=== PATIENT | female | born 1960 | race Caucasian/White ===

== ENCOUNTER 2017-10-15 10:18 | Inpatient (IN) | payer OTHER, MEDICARE ==
[~2017-10-15] VITALS: Ht 157.5 cm; Wt 53.1 kg
--- NOTE | 2017-10-15 10:26 | NUR ---
KATERINA FROM HOME DT SEVERE BACK PAIN 05/11, NON RADIATING X 3 DAYS WORST TODAY. PATIENT UNABLE TO BEAR WEIGHT DUE TO PAIN, TOOK ADVIL AND TYLENOL BUT NO HELP. PT WITH HX OF MULTIPLE BACK SURGERY. LAST SURGERY WAS 2011. PATIENT IS AFEBRILE. VSS. CONNECTED TO TELE MONITOR. PENDING MD FRANKLIN
[2017-10-15] MEDS ORDERED: ONDANSETRON HCL/PF 4 MG/2 ML VIAL ONE (10:59)
[2017-10-15] MEDS ORDERED: MORPHINE SULFATE INJ 4 MG/ML DISP.SYRIN ONE ×3 (10:59→14:17)
[2017-10-15] MEDS ORDERED: MORPHINE SULFATE INJ 4 MG/ML DISP.SYRIN IV ONE (11:00)
[2017-10-15] MEDS ORDERED: ONDANSETRON HCL/PF 4 MG/2 ML VIAL IV ONE (11:00)
[2017-10-15] MEDS ORDERED: ATOR40TA PO (11:13)
[2017-10-15] MEDS ORDERED: TOPI100T38 PO (11:13)
[2017-10-15] MEDS ORDERED: VENL75CA62 PO (11:13)
[2017-10-15 11:20] LABS: BASOPHILS % (AUTO) 0.4 % (0.0-2.0); EOSINOPHILS # (AUTO) 0.3 /CMM (0.0-0.7); EOSINOPHILS % (AUTO) 4.7 % (0.0-6.0); HEMATOCRIT 47 % (33-45); LYMPHOCYTES # (AUTO) 2.1 /CMM (0.8-4.8); LYMPHOCYTES % (AUTO) 32.1 % (20.0-44.0); MEAN CORPUSCULAR HEMOGLOBIN 32 PG (26.0-33.0); MEAN CORPUSCULAR HGB CONC 34 g/dl (31.0-36.0); MEAN CORPUSCULAR VOLUME 91 fL (82-100); MONOCYTES # (AUTO) 0.6 /CMM (0.1-1.30); MONOCYTES % (AUTO) 9.6 % (2.0-12.0); NEUTROPHILS # (AUTO) 3.4 /CMM (1.8-8.9); NEUTROPHILS % (AUTO) 53.2 % (43.0-81.0); PLATELET COUNT (AUTO) 323 /CMM (150-450); RDW COEFFICIENT OF VARIATION 11.6 (11.5-15.0); WHITE BLOOD COUNT (AUTO) 6.4 K/uL (4.3-11.0)
[2017-10-15 11:30] LABS: CALCIUM, SERUM 9.3 mg/dL (8.5-10.1); CREATININE 0.9 mg/dL (0.6-1.3); POTASSIUM 3.7 mmol/L (3.5-5.1)
--- NOTE | 2017-10-15 11:31 | NUR ---
REPORT GIVEN TO JOHN PAUL REDDING FOR ESTUARDO
[2017-10-15 11:34] LABS: INR 0.95 (0.85-1.15)
[2017-10-15 11:36] LABS: ALBUMIN 3.8 g/dL (3.4-5.0); BILIRUBIN,TOTAL 0.7 mg/dL (0.2-1.0); TOTAL PROTEIN, SERUM 7.4 g/dL (6.4-8.2)
[2017-10-15] MEDS ORDERED: MORPHINE SULFATE INJ 2 MG/ML DISP.SYRIN IV STA (12:19)
[2017-10-15 12:24] LABS: APPEARANCE,URINE Clear (CLEAR); BILIRUBIN,URINE Negative (NEGATIVE); BLOOD, URINE Negative Ery/uL (NEGATIVE); COLOR,URINE Yellow (YELLOW); KETONES,URINE Negative (NEGATIVE); LEUKOCYTE ESTERASE ,URINE Small (NEGATIVE); NITRITE, URINE Negative (NEGATIVE); PROTEIN,URINE Negative (NEGATIVE); UGLUCOSE Negative (NEGATIVE); UROBILINOGEN,URINE 0.2 EU/dL (0.2)
--- NOTE | 2017-10-15 12:25 | NUR ---
MEDICATED PATIENT FOR PAIN ORDERED
[2017-10-15 12:40] LABS: BACTERIA,URINE Rare /HPF (None Seen); RBC,URINE 0-3 /HPF (0-2); SQUAMOUS EPITHELIAL CELL,UR Few /HPF (None Seen)
--- NOTE | 2017-10-15 13:24 | NUR ---
ON-CALL FOR DR. GERALD RIVERA CALLED.
[2017-10-15] MEDS ORDERED: MORPHINE SULFATE INJ 4 MG/ML DISP.SYRIN IV STA (14:15)
[2017-10-15] MEDS ORDERED: diphenhydrAMINE HCL 50 MG/ML VIAL IV STA (14:15)
[2017-10-15] MEDS ORDERED: diphenhydrAMINE HCL 50 MG/ML VIAL ONE (14:16)
--- NOTE | 2017-10-15 14:29 | NUR ---
PATIENT TRANSPORTED TO [facility]. S
--- NOTE | 2017-10-15 15:00 | NUR ---
MS RN NOTES RECEIVED PATIENT IN BED RESTING NO SOB OR ACUTE DISTRESS NOTED. PATIENT ALERT, ORIENTED X4. PERIPHERAL IV INTACT, PATENT. PATIENT ORIENTED TO ROOM, CALL LIGHT WITHIN REACH. BED IN LOW LOCKED POSITION. WILL CONTINUE TO MONITOR.
--- NOTE | 2017-10-15 15:30 | NUR ---
MS RN NOTES PATIENT STATES SHE HAS SEVERE PRURITUS REQUESTS MORE BENADRYL DR. YANNICK ABDULLAHI MADE AWARE AWAITING FOR ORDERS.
--- NOTE | 2017-10-15 15:45 | NUR ---
MS RN NOTES ORDERS RECEIVED FOR BENADRYL 25MG IV ONCE NOTED AND CARRIED OUT.
[2017-10-15 16:00] VITALS: BP 133/77
[2017-10-15] MEDS ORDERED: diphenhydrAMINE HCL 50 MG/ML VIAL IV ONE (16:00)
--- NOTE | 2017-10-15 16:00 | NUR ---
MS RN NOTES DR. YANNICK ABDULLAHI AT BEDSIDE WHILE ADMINISTERING BENADRYL 25MG STATES TO ADMINISTER 50MG FULL DOSE OF BENADRYL. NOTED AND CARRIED OUT.
--- NOTE | 2017-10-15 16:30 | NUR ---
MS RN NOTES PATIENT TRANSFERRED TO MRI.
[2017-10-15] MEDS ORDERED: MAGNESIUM HYDROXIDE 30 ML UDC PO PRN (17:00)
[2017-10-15] MEDS ORDERED: ACETAMINOPHEN 325 MG TABLET PO PRN (17:00)
[2017-10-15] MEDS ORDERED: ONDANSETRON HCL/PF 4 MG/2 ML VIAL IVP PRN (17:00)
[2017-10-15] MEDS ORDERED: DIAZEPAM 5 MG/ML 2 ML DISP.SYRIN IV PRN (17:00)
[2017-10-15] MEDS ORDERED: diphenhydrAMINE HCL 50 MG/ML VIAL IV PRN (17:00)
[2017-10-15] MEDS ORDERED: ZOLPIDEM TARTRATE 5 MG TABLET PO PRN (17:00)
[2017-10-15] MEDS ORDERED: ZOLPIDEM TARTRATE 10 MG TABLET PO PRN (17:30)
[2017-10-15] MEDS: HYDROMORPHONE INJ 2 MG/ML DISP.SYRIN IV PRN (17:45)
[2017-10-15] MEDS: CEPHALEXIN MONOHYDRATE 250 MG CAPSULE PO SCH ×2 (17:45→22:57)
[2017-10-15] MEDS ORDERED: ATORVASTATIN 40 MG TABLET PO SCH (18:00)
[2017-10-15] MEDS ORDERED: DEXAMETHASONE SOD PHOSPHATE 10 MG/ML VIAL IV ONE (18:00)
[2017-10-15] MEDS: TOPIRAMATE 100 MG TABLET PO SCH (18:05)
--- NOTE | 2017-10-15 18:59 | NUR ---
MS RN NOTES PATIENT IN BED RESTING NO SOB OR ACUTE DISTRESS NOTED. ALL DUE MEDICATIONS ADMINISTERED. ALL NEEDS MET. PATIENT COMPLAINING OF ITCHING DR. KAYLEN IVERSON WAITING FOR CALL BACK. BED IN LOW LOCKED POSITION. CALL LIGHT WITHIN REACH. WILL ENDORSE CARE TO PM SHIFT.
--- NOTE | 2017-10-15 19:15 | NUR ---
RN OPENING NOTES PT AWAKE AND RESTING IN BED. NO COMPLAINTS OF PAIN OR SOB. PT COMPLAINING OF "ITCHINESS". INFORMED PT THAT DR ABDULLAHI CHANGED PRN BENADRYL FROM Q6H TO Q4H. WILL ADMINISTER AT 2000. PT HAS A LEFT AC #20, INTACT AND PATENT. PT WILL BE NPO AFTER MIDNIGHT. PT HAS A SCHEDULED EPIDURAL AT 1000 TOMORROW. SAFETY PRECAUTIONS IN PLACE, BED IN LOW, LOCKED POSITION X2 SIDERAILS UP AND CALL LIGHT WITHIN REACH. WILL CONTINUE TO MONITOR.
[2017-10-15 20:00] VITALS: BP 127/87
[2017-10-15] MEDS: diphenhydrAMINE HCL 50 MG/ML VIAL IV PRN (20:03)
--- NOTE | 2017-10-15 20:03 | NUR ---
RN NOTES ADMINISTERED PRN BENADRYL 50MG IV Q4H PER PATIENT REQUEST. WILL CONTINUE TO MONITOR.
--- NOTE | 2017-10-15 20:15 | NUR ---
RN NOTE DR ABDULLAHI ORDERED TORADOL 30MG IV Q6H PRN FOR PAIN. WILL CARRY OUT MD ORDER.
[2017-10-15] MEDS: KETOROLAC TROMETHAMINE INJ 30 MG/ML VIAL IV PRN (20:42)
--- NOTE | 2017-10-15 20:42 | NUR ---
RN NOTES ADMINISTERED TORADOL 30MG IV Q6H PRN PER PT REQUEST. WILL CONTINUE TO MONITOR.
[2017-10-15] MEDS ORDERED: DIAZEPAM 5 MG TABLET ONE (22:06)
--- NOTE | 2017-10-15 22:57 | NUR ---
RN NOTES PT REQUESTED PRN AMBIEN FOR SLEEP AND TYLENOL 650MG PO PRN. WILL ADMINISTER AND CONTINUE TO MONITOR.
[2017-10-16] MEDS: diphenhydrAMINE HCL 50 MG/ML VIAL IV PRN ×4 (01:15→15:19)
--- NOTE | 2017-10-16 01:15 | NUR ---
RN NOTES PT REQUESTED PRN BENADRYL AND PRN DILAUDID. WILL ADMINISTER AND CONTINUE TO MONITOR.
[2017-10-16] MEDS: HYDROMORPHONE INJ 2 MG/ML DISP.SYRIN IV PRN ×3 (01:16→11:58)
[2017-10-16] MEDS: KETOROLAC TROMETHAMINE INJ 30 MG/ML VIAL IV PRN ×2 (03:20→13:16)
--- NOTE | 2017-10-16 03:20 | NUR ---
RN NOTES PT REQUESTED PRN TORADOL 30MG Q6H PRN. WILL ADMINISTER AND CONTINUE TO MONITOR.
[2017-10-16] MEDS: CEPHALEXIN MONOHYDRATE 250 MG CAPSULE PO SCH ×2 (05:30→12:00)
--- NOTE | 2017-10-16 05:30 | NUR ---
RN NOTES PT REQUESTED BENADRYL AND DILAUDID PRN. WILL ADMINISTER AND CONTINUE TO MONITOR.
[2017-10-16 06:28] LABS: HEMATOCRIT 44 % (33-45); LYMPHOCYTES % (AUTO) 14.8 % (20.0-44.0); MEAN CORPUSCULAR HEMOGLOBIN 32 PG (26.0-33.0); MEAN CORPUSCULAR HGB CONC 34 g/dl (31.0-36.0); MEAN CORPUSCULAR VOLUME 93 fL (82-100); MONOCYTES # (AUTO) 0.1 /CMM (0.1-1.30); MONOCYTES % (AUTO) 1.9 % (2.0-12.0); NEUTROPHILS # (AUTO) 5.4 /CMM (1.8-8.9); NEUTROPHILS % (AUTO) 83.3 % (43.0-81.0); PLATELET COUNT (AUTO) 296 /CMM (150-450); RDW COEFFICIENT OF VARIATION 12.8 (11.5-15.0); RED BLOOD CELL COUNT(AUTO) 4.72 MIL/uL (4.0-5.2); WHITE BLOOD COUNT (AUTO) 6.5 K/uL (4.3-11.0)
[2017-10-16 06:35] LABS: ALBUMIN 3.7 g/dL (3.4-5.0); BILIRUBIN,TOTAL 0.7 mg/dL (0.2-1.0); CALCIUM, SERUM 9.6 mg/dL (8.5-10.1); CREATININE 0.8 mg/dL (0.6-1.3); PHOSPHORUS 5.1 mg/dL (2.5-4.9); POTASSIUM 4.9 mmol/L (3.5-5.1); TOTAL PROTEIN, SERUM 7.3 g/dL (6.4-8.2)
[2017-10-16 06:46] LABS: THYROID STIMULATING HORMONE 1.303 uIU/mL (0.358-3.74)
--- NOTE | 2017-10-16 06:53 | NUR ---
RN CLOSING NOTES PT AWAKE AND RESTING IN BED. NO COMPLAINTS OF SOB OVERNIGHT. PT CONTINUES TO COMPLAIN OF RADIATING BACK PAIN. PT HAS A LEFT AC #20, INTACT AND PATENT. PT NPO AFTER MIDNIGHT. PT HAS A SCHEDULED EPIDURAL AT 1000 TODAY. SAFETY PRECAUTIONS IN PLACE, BED IN LOW, LOCKED POSITION X2 SIDERAILS UP AND CALL LIGHT WITHIN REACH. ALL PT NEEDS MET. WILL ENDORSE TO DAY SHIFT NURSE FOR CONTINUITY OF CARE.
--- NOTE | 2017-10-16 07:05 | NUR ---
RN NOTES PT IS SLEEPING IN BED, NO SIGNS OF DISTRESS NOTED. PT ON RA, RESPIRATIONS ARE EVEN AND UNLABORED. IV ON LAC INTACT AND SL. SAFETY MEASURES ARE IN PLACE, CALL LIGHT IS IN REACH. WILL CONTINUE TO MONITOR.
[2017-10-16 08:00] VITALS: BP 126/76
[2017-10-16] MEDS: TOPIRAMATE 100 MG TABLET PO SCH (08:26)
[2017-10-16] MEDS ORDERED: VENLAFAXINE XR 75 MG CAP.SR.24H PO SCH (09:00)
[2017-10-16] MEDS ORDERED: DEXAMETHASONE SOD PHOSPHATE 10 MG/ML VIAL IV SCH (09:00)
[2017-10-16] MEDS ORDERED: FENTANYL PF 100MCG/2ML AMPUL ONE (10:00)
[2017-10-16] MEDS ORDERED: IOHEXOL 50 ML IV ONE (10:00)
[2017-10-16] MEDS ORDERED: DEXAMETHASONE SOD PHOSPHATE 10 MG/ML VIAL ONE (10:01)
[2017-10-16] MEDS ORDERED: LIDOCAINE 1% INJ 50 ML MDV IJ ONE (10:01)
[2017-10-16] MEDS ORDERED: BUPIVACAINE 0.25% 75 MG/30 ML VIAL ONE (10:01)
[2017-10-16] MEDS ORDERED: methylPREDNISolone ACETATE 80 MG/ML VIAL ONE (10:01)
[2017-10-16] MEDS ORDERED: oxyCODONE IR immediate release 5 MG PO PRN (11:00)
--- NOTE | 2017-10-16 11:20 | NUR ---
RN NOTES PT WAS BROUGHT BACK FROM THE OR IN STABLE CONDITION. VITALS ARE WNL. PT ON RA, RESPIRATIONS ARE EVEN AND UNLABORED. IV INTACT AND RUNNING NS. NO SIGNS OF DISTRESS NOTED, WILL CONTINUE TO MONITOR.
[2017-10-16] MEDS: ACETAMINOPHEN 325 MG TABLET PO SCH ×2 (11:29→11:42)
[2017-10-16] MEDS ORDERED: CEPH-570 PO (13:14)
[2017-10-16] MEDS ORDERED: PRED20TA PO (13:14)
--- NOTE | 2017-10-16 16:02 | NUR ---
RN NOTES PT WAS DISCHARGED HOME IN STABLE CONDITION, ACCOMPANIED BY HER . VITAL SIGNS ARE WNL. IV AND ID BAND WERE REMOVED. BELONGINGS WERE RETURNED TO PT. PT GIVEN DISCHARGE INSTRUCTIONS AND COMPACT DISC OF IMAGES DONE HERE. PT WAS GIVEN NEW PRESCRIPTION AND WAS TOLD TO HAVE FILLED AT PHARMACY. PT TOLD TO FOLLOW UP WITH PCP WITHIN 1-2 WEEKS OF DISCHARGE. PT VERBALIZED UNDERSTANDING.
== END 2017-10-16 16:00 | disposition home or self-care (01) | DRG 520 ==
LOC: ER 10:20 → EDBD 10:20 → MED 11:09
PROVIDERS: ADMIT Nurse Practitioner Acute Care; ATTEND Nurse Practitioner Acute Care
PROC: 00NY0ZZ Release Lumbar Spinal Cord, Open Approach (ICD-10-PCS; principal; 2017-10-15)
PROC: 3E0R3BZ Introduction of Anesthetic Agent into Spinal Canal, Percutaneous Approach (ICD-10-PCS; 2017-10-16)
PROC: 3E0R33Z Introduction of Anti-inflammatory into Spinal Canal, Percutaneous Approach (ICD-10-PCS; 2017-10-16)
DX: M54.16 Radiculopathy, lumbar region (principal); G62.9 Polyneuropathy, unspecified; E78.5 Hyperlipidemia, unspecified; G43.909 Migraine, unspecified, not intractable, without status migrainosus; Z98.1 Arthrodesis status; Z90.13 Acquired absence of bilateral breasts and nipples; Z85.3 Personal history of malignant neoplasm of breast; G89.29 Other chronic pain; M54.32 Sciatica, left side
CPT/HCPCS: 36415; 71045-TC; 72148-TC; 80053-TC; 80061-TC; 81000-TC; 83735-TC; 84100-TC; 84443-TC; 85025-TC; 85730-TC; 86850-TC; 87081-TC; A4606; J1040; J1100; J1170; J1200; J1885; J2270; J2405; J3010; J3490; Q9967; Z7610